=== PATIENT | male | born 2005 | race Caucasian/White ===

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

== ENCOUNTER → 2024-05-08 17:07 | Outpatient (BNVA) | payer BC, SELFPAY | PROVIDERS: PCP Family Medicine; Visit Provider Emergency Medicine | DX: R11.10 Vomiting, unspecified (principal); A08.4 Viral intestinal infection, unspecified | CPT/HCPCS: 87400; 87426 ==

== ENCOUNTER → 2024-06-07 11:20 | Outpatient (BNVA) | payer BC, SELFPAY | PROVIDERS: PCP Family Medicine; Visit Provider Registered Nurse Neonatal Intensive Care | DX: R50.9 Fever, unspecified (principal); J06.9 Acute upper respiratory infection, unspecified | CPT/HCPCS: 87400; 87426 ==

== ENCOUNTER 2024-11-05 13:05 | Emergency (ER) | payer BC, SELFPAY ==
[2024-11-05 13:06] VITALS: BP 116/72; PULSE 87; TEMP 37.1; O2SAT 97
[2024-11-05 15:45] VITALS: BP 128/79; PULSE 65; RESP 16; O2SAT 100
--- NOTE | 2024-11-05 16:06 | W.ED.HA ---
HPI - Headache General: Chief Complaint: Headache Stated Complaint: dizzy, lightheaded, SHAW, n/v/f Time Seen by Provider: 11/05/24 15:37 History of Present Illness: 19-year-old male presents to the emergency room with dizziness lightheadedness he says has had at the last couple of days. He also reported a bit of a headache. He is unable to really localize where the headache is out he just generally does not feel well just prior to my coming in the room to see him he had his blood drawn from his description he had a vasovagal episode after the blood was drawn. He has not had any vomiting or diarrhea no head trauma. No fever sweats or chills. Patient is on some herbal supplements with no prescription medications. Associated symptoms: Deny chest pain, fever(s) or rash Related Data Home Medications ?Medication ?Instructions ?Recorded ?Confirmed Rex's wort 300 mg tablet 300 mg PO DAILY 10/30/24 10/30/24 ashwaghanda PO 10/30/24 Allergies Allergy/AdvReac Type Severity Reaction Status Date / Time No Known Allergies Allergy Verified 11/05/24 13:16 Review of Systems Const: Denies: fever(s) or chills Card: Denies: chest pain Resp: Denies: dyspnea GI: Denies: abdominal pain : Denies: dysuria, urinary frequency or urinary urgency Musc: Denies: neck pain or back pain Skin/Breast: Denies: rash PENDING SALE TO [facility] ED PFSH: Medical History Acute viral syndrome Establishing care with new doctor, encounter for Social History Smoking and tobacco/nicotine status: current every day tobacco/nicotine user Alcohol intake: never Substance/Drug Use: never Physical Exam Const: GENERAL APPEARANCE: cooperative ORIENTATION/CONSCIOUSNESS: Yes awake, Yes oriented to person, Yes oriented to place and Yes oriented to time HENMT: COMMON NORMALS: normocephalic, atraumatic and hearing grossly normal bilaterally HEAD & SCALP: normocephalic and atraumatic Resp: COMMON NORMALS: normal respiratory effort, No retractions, No use of accessory muscles and clear to auscultation bilaterally EFFORT & INSPECTION: Yes tachypneic AUSCULTATION: clear to auscultation bilaterally Cardio: COMMON NORMALS: regular rate, regular rhythm and No murmurs present (Cardio) RATE: regular rate RHYTHM: regular rhythm GI: COMMON NORMALS: Soft to palpation and No hepatosplenomegaly present AUSCULTATION: Yes normoactive bowel sounds PALPATION: Yes Soft to palpation, No Tenderness to palpation present (GI), No Guarding due to palpation present (GI) and Yes No hepatosplenomegaly present Extremity: COMMON NORMALS: normal to inspection, capillary refill normal, no clubbing, cyanosis or edema, no calf tenderness and no pedal edema Neuro: SENSORIUM/ORIENTATION: Yes oriented to person, Yes oriented to place and Yes oriented to time Skin: COMMON NORMALS: no rashes or lesions noted GENERAL SKIN EXAM: no rashes or lesions noted Course Vital Signs: Vital signs: Vital Signs Temperature 98.7 F 11/05/24 13:06 Pulse Rate 66 11/05/24 17:27 Respiratory Rate 16 11/05/24 17:27 Blood Pressure 128/71 11/05/24 17:27 Pulse Oximetry 99 11/05/24 17:27 Oxygen Delivery Me thod Room Air 11/05/24 17:27 MDM - Headache Medical Decision Making Patient is hyperventilating blood gases reviewed. He did have a frontal headache as well. He was given medications his headache improved hyperventilation resolved he is feeling much better. Reviewed findings with the patient. Will discharge patient home. . Follow-up with primary care return if she has further problems Lab Data Laboratory Results Specimen Type Arterial 11/05/24 16:18 Sample Site Radial, right 11/05/24 16:18 ABG pH 7.58 (7.35-7.45) H* 11/05/24 16:18 ABG pCO2 17.9 mmHg (35-45) L* 11/05/24 16:18 ABG pO2 102.0 mmHg (80.0-100.0) H 11/05/24 16:18 ABG PO2/FiO2 Ratio 485 11/05/24 16:18 ABG HCO3 16.7 mmol/L (22-26) L 11/05/24 16:18 ABG O2 Saturation > 99.1 11/05/24 16:18 ABG Base Excess -2.0 mmol/L (-2.0-2.0) 11/05/24 16:18 Davey Test Pos 11/05/24 16:18 A-a O2 Gradient 2.7 mmHg (5-10) L 11/05/24 16:18 Hematocrit 48.6 % (42-52) 11/05/24 16:18 Hgb O2 Saturation 98.6 % (95-100) 11/05/24 16:18 Carboxyhemoglobin 0.6 %THgb (0.4-20.1) 11/05/24 16:18 Methemoglobin 0.1 % (0.4-1.5) L 11/05/24 16:18 Total Hemoglobin 15.9 g/dL (14-18) 11/05/24 16:18 Sodium 141.0 mmol/L (131-143) 11/05/24 16:18 Potassium 3.7 mmol/L (3.5-5.0) 11/05/24 16:18 Glucose 112.0 mg/dL (70-115) 11/05/24 16:18 Ionized Calcium 1.2 mmol/L (1.1-1.4) 11/05/24 16:18 O2 Delivery Device Room air 11/05/24 16:18 FiO2 21.0 % 11/05/24 16:18 Toxicology Supervisor ID Monro 11/05/24 16:18 All radiology interpretation(s) finalized by discharge Discharge Plan Discharge Patient Disposition: Home Clinical Impression: Headache, Hyperventilation syndrome Condition: Stable Prescriptions: No Action ashwaghanda PO Rex's wort 300 mg tablet 300 mg PO DAILY Discharge Orders: Discharge ED (Routine); Ordered 11/05/24 Ordered By: Artur Hayes Referrals: Gerard Garcia MD [Primary Care Provider, Family Practice] Discharge Diet: Usual diet Discharge Activity: Resume usual activity Patient Instructions: Opioid Safety, Pain Management Activity Restrictions/Additional Instructions: Thank you for choosing [facility] for your healthcare needs today. It is very important that you follow up as instructed or that you return to the Emergency Department should you have concerns or if your condition changes or worsens in any way. You are seen in the emergency room with complaint of lightheadedness dizziness as well as some mild headache. You are given medications for the headache. You are also noted to have hyperventilation which think is part of your constellation of symptoms. Follow-up with your primary care doctor if you have persistent symptoms. Print Language: Yakut Coding Level of Care Code ED Chemical Processing Equipment Repairer for Britney Kam
[2024-11-05] MEDS: ketorolac 30 mg/mL INJ IVP (16:10)
[2024-11-05] MEDS: dexamethasone 10 mg/mL INJ IVP (16:10)
[2024-11-05] MEDS: diphenhydrAMINE 50 mg/mL SDV 1mL IVP (16:10)
[2024-11-05 16:30] LABS: Alveolar-Arterial Oxygen Gradi 2.7 mmHg (5-10); Arterial Blood Gas Hematocrit 48.6 % (42-52); Blood Gas Allen Test Pos; Blood Gas Operator Identificat MONRO; Blood Gas Sample Site Radial, right; Blood Gas Sample Type Arterial; Carboxyhemoglobin 0.6 %THgb (0.4-20.1); HCO3 ABG 16.7 mmol/L (22-26); HGB O2 Sat 98.6 % (95-100); Ionized Calcium Level - ABG 1.2 mmol/L (1.1-1.4); Methemoglobin 0.1 % (0.4-1.5); Oxygen Device ROOM AIR; Oxygen Saturation ABG > 99.1; PO2 FiO2 Ratio Arterial Blood 485; Potassium Level - ABG 3.7 mmol/L (3.5-5.0); Total Hemoglobin 15.9 g/dL (14-18)
[2024-11-05 16:31] LABS: ABG PCO2 17.9 mmHg (35-45); ABG PH Result 7.58 (7.35-7.45)
[2024-11-05 16:56] VITALS: PULSE 71; O2SAT 100
[2024-11-05 17:27] VITALS: BP 128/71; PULSE 66; RESP 16; O2SAT 99
== END 2024-11-05 17:36 | disposition home or self-care (01) ==
PROVIDERS: Emergency Provider Family Medicine; PCP Family Medicine
DX: R51.9 Headache, unspecified (principal); F45.8 Other somatoform disorders; Z72.0 Tobacco use
CPT/HCPCS: 36600; 80051; 82330; 82805; 99283; J1100; J1200; J1885